=== PATIENT | female | born 1960 | race American Indian/Alaskan Native ===

== ENCOUNTER 2017-03-31 16:19 | Emergency (ER) | payer MEDICAID ==
[2017-03-31 16:34] VITALS: BP 162/93
--- NOTE | 2017-03-31 17:17 | Emergency Department Report ---
ED Upper Extremity Inj HPI - General Chief Complaint: Extremity Injury, Upper Stated Complaint: PAIN IN LEFT FINGER Time Seen by Provider: 03/31/17 17:05 Source: patient Mode of arrival: Ambulatory Limitations: No Limitations - History of Present Illness Complaint: Injury to:: left, finger Other Extremity Injury: Fingers: Left Other Injuries: none Handedness: right Improves With: none Worsens With: none Associated Symptoms: denies other symptoms - Related Data Previous Rx's Medication Instructions Recorded Last Taken Type Cephalexin [Keflex] 500 mg PO Q12HR #20 cap 03/31/17 Unknown Rx traMADol [Ultram] 50 mg PO Q6HR PRN #12 tablet 03/31/17 Unknown Rx Allergies Allergy/AdvReac Type Severity Reaction Status Date / Time codeine Allergy Dizziness Verified 03/31/17 16:30 ED Review of Systems ROS: Stated complaint: PAIN IN LEFT FINGER Other details as noted in HPI Comment: Unobtainable due to pts medical conditions Constitutional: no symptoms reported, see HPI. denies: chills Eyes: as per HPI. denies: eye pain ENT: as per HPI. denies: ear pain, throat pain Respiratory: no symptoms reported, see HPI. denies: cough, orthopnea Cardiovascular: as per HPI. denies: chest pain, palpitations, dyspnea on exertion, orthopnea Endocrine: no symptoms reported, see HPI. denies: excessive sweating, flushing , intolerance to cold, intolerance to heat Gastrointestinal: as per HPI. denies: abdominal pain, nausea, vomiting Genitourinary: as per HPI. denies: urgency, dysuria Musculoskeletal: as per HPI, other (thumb pain sp shutting it in car door.). denies: back pain Skin: as per HPI. denies: rash, lesions Neurological: as per HPI. denies: headache, weakness Psychiatric: as per HPI. denies: anxiety, depression Hematological/Lymphatic: as per HPI. denies: easy bleeding ED Past Medical Hx - Past Medical History Previous Medical History?: Yes Hx Hypertension: Yes Additional medical history: Back pain - Surgical History Past Surgical History?: Yes Additional Surgical History: Hysterectomy - Social History Smoking Status: Never Smoker Substance Use Type: Alcohol, Non Opiate Pain - Medications Home Medications: Home Medications Medication Instructions Recorded Confirmed Last Taken Type Cephalexin [Keflex] 500 mg PO Q12HR #20 cap 03/31/17 Unknown Rx traMADol [Ultram] 50 mg PO Q6HR PRN #12 tablet 03/31/17 Unknown Rx ED Physical Exam - General Limitations: No Limitations General appearance: alert - Head Head exam: Present: atraumatic - Eye Eye exam: Present: normal appearance - ENT ENT exam: Present: mucous membranes moist - Neck Neck exam: Present: normal inspection - Respiratory Respiratory exam: Present: normal lung sounds bilaterally - Cardiovascular Cardiovascular Exam: Present: regular rate - GI/Abdominal GI/Abdominal exam: Present: soft - Rectal Rectal exam: Present: deferred - Extremities Exam Extremities exam: Present: full ROM - Expanded Upper Extremity Exam Left Hand Wrist exam: Present: subungual hematoma (l thumb sp shutting in car door. pain relieved w cautery. pain w flex but can flex. ) ED Course Vital Signs 03/31/17 16:30 Temperature 98.1 F Pulse Rate 78 Respiratory 20 Rate Blood Pressure 162/93 O2 Sat by Pulse 100 Oximetry - Reevaluation(s) Reevaluation #1: 03/31/17 17:37 to er p shutting l thumb in car door co pain subungal noted cautery per procedure note xray noted dressing frog splint dc home w dc poc fu ortho - I & D subungal Type of Procedure: Simple Site: small I & D Procedure: betadine prep, sterile drapes applied, sterile dressing applied Progress: cautery to open subungal tolerated well cleaned w betadine dressing applied Critical care attestation.: If time is entered above; I have spent that time in minutes in the direct care of this critically ill patient, excluding procedure time. ED Disposition Clinical Impression: Hematoma, subungual, finger, Fracture of thumb Disposition: DC-01 TO HOME OR SELFCARE Is pt being admited?: No Does the pt Need Aspirin: No Condition: Stable Instructions: Subungual Hematoma (ED), Finger Fracture (ED) Additional Instructions: ice rest elevate we want blood to drain splint epsom salts will sooth med as ordered today follow up ortho next week due to fracture- be sure it heals motrin or tylenol for mild pain ultram for severe pain Prescriptions: Cephalexin [Keflex] 500 mg PO Q12HR #20 cap traMADol [Ultram] 50 mg PO Q6HR PRN #12 tablet PRN Reason: Pain Referrals: IVÁN RAE MD [Staff Physician] - 3-5 Days Time of Disposition: 17:19
--- NOTE | 2017-03-31 19:02 | XRay Report ---
FINAL REPORT EXAM: XR HAND 3+V LT HISTORY: left thumb injury,slammed hand in trunk TECHNIQUE: Three views of the left hand PRIORS: None. FINDINGS: The bones are normally aligned and mineralized. The joint spaces are well-preserved. There is no evidence of acute fracture. The soft tissues are unremarkable. IMPRESSION: No evidence of acute fracture or subluxation.
== END 2017-03-31 17:40 | disposition home or self-care (01) ==
LOC: ED 16:19
DX: S60.112A Contusion of left thumb with damage to nail, initial encounter (principal); S62.502A Fracture of unspecified phalanx of left thumb, initial encounter for closed fracture; I10 Essential (primary) hypertension; Z88.6 Allergy status to analgesic agent; X58.XXXA Exposure to other specified factors, initial encounter; Y93.89 Activity, other specified; Y92.89 Other specified places as the place of occurrence of the external cause; Y99.8 Other external cause status
CPT/HCPCS: 99283

== ENCOUNTER 2017-04-07 18:36 | Emergency (ER) | payer MEDICAID ==
[2017-04-07 19:00] VITALS: BP 142/78
[2017-04-07 19:45] LABS: Basophils % (Auto) 0.6 % (0.0-1.8); Eosinophils % (Auto) 2.8 % (0.0-4.3); Hematocrit 45.2 % (30.3-42.9); Hemoglobin 14.9 gm/dl (10.1-14.3); Mean Corpuscular HGB Conc 33 % (30-34); Mean Corpuscular Hemoglobin 30 pg (28-32); Mean Corpuscular Volume 90 fl (79-97); Platelet Count 221 K/mm3 (140-440); Red Cell Distribution Width 12.9 % (13.2-15.2); White Blood Count 5.3 K/mm3 (4.5-11.0)
[2017-04-07 19:48] LABS: Anion Gap 18 mmol/L; BUN/Creatinine Ratio 18; Blood Urea Nitrogen 11 mg/dL (7-17); Calcium 9.9 mg/dL (8.4-10.2); Carbon Dioxide 27 mmol/L (22-30); Chloride 100.9 mmol/L (98-107); Glucose 92 mg/dL (65-100); Potassium 4.2 mmol/L (3.6-5.0); Sodium 142 mmol/L (137-145)
== END 2017-04-07 21:00 | disposition left against medical advice (07) ==
LOC: ED 18:36
DX: R06.02 Shortness of breath (principal); R07.9 Chest pain, unspecified; Z53.21 Procedure and treatment not carried out due to patient leaving prior to being seen by health care provider
CPT/HCPCS: 36415; 80048; 84484; 85025; 93005; 93010